=== PATIENT | male | born 1955 | race Caucasian/White ===

== ENCOUNTER 2017-11-20 22:04 | Emergency (ER) | payer OTHER ==
[2017-11-20] MEDS ORDERED: ASPIRIN 81 MG CHEWABLE CTB PO STA (22:10)
[2017-11-20] MEDS ORDERED: MORPHINE SULFATE 10 MG/ML SOL IV PRN (22:10)
[2017-11-20] MEDS ORDERED: SODIUM CHLORIDE 0.9% FLUSH 10 ML SOL IV PRN (22:10)
[2017-11-20] MEDS ORDERED: NITROGLYCERIN 0.4 MG TAB SL PRN (22:10)
[2017-11-20 22:27] VITALS: TEMP 97.9; O2SAT 96
[2017-11-20 22:28] LABS: BASOPHILS % (AUTO) 1 % (0-3); EOSINOPHILS % (AUTO) 2 % (0-9); HEMATOCRIT 41 % (39-53); HEMOGLOBIN 14.4 gm/dl (13.5-17.7); LYMPHOCYTES % (AUTO) 26.2 % (10-50); MEAN CORPUSCULAR HEMOGLOBIN 32.8 pg (27.0-32.0); MEAN CORPUSCULAR VOLUME 94 fL (80-100); MONOCYTES % (AUTO) 7.8 % (0-12); NEUTROPHILS % (AUTO) 62.8 % (37-80)
[2017-11-20 22:41] LABS: INR 0.93 (0.86-1.12)
[2017-11-20 22:46] LABS: ALBUMIN 3.4 gm/dl (3.4-5.0); ALKALINE PHOSPHATASE 83 IU/L (46-116); ALT 40 IU/L (14-63); AMYLASE 58 IU/L (25-115); AST 27 IU/L (15-37); BILIRUBIN,TOTAL 0.3 mg/dl (0.2-1.0); BLOOD UREA NITROGEN 12 mg/dl (7-18); CALCIUM 8.4 mg/dl (8.5-10.1); CARBON DIOXIDE 22.8 mEq/L (21-32); CHLORIDE 101 mMol/L (98-107); CREATINE KINASE 157 U/L (39-308); CREATININE 1.07 mg/dl (0.80-1.30); GLOM FILT RATE 70 mL/min (>60); GLUCOSE 154 mg/dl (74-106); POTASSIUM 3.4 mMol/L (3.5-5.1); SODIUM 137 mMol/L (136-145); TOTAL PROTEIN 6.8 gm/dl (6.4-8.2); TROP I < 0.017 ng/ml (0.000-0.056)
[2017-11-20] MEDS ORDERED: MORPHINE SULFATE 10 MG/ML SOL IV ONE (22:56)
[2017-11-20] MEDS ORDERED: SODIUM CHLORIDE 0.9% 1000ML 1,000 ML with POTASSIUM CHLORIDE 2 MEQ/ML 20 MEQ IV SCH (23:15)
[2017-11-20] MEDS ORDERED: MORPHINE SULFATE 10 MG/ML SOL ONE (23:18)
[2017-11-20] MEDS ORDERED: POTASSIUM CHLORIDE 2 MEQ/ML SOL IV ONE (23:29)
[2017-11-21 03:14] VITALS: BP 121/59; PULSE 80; RESP 16
== END 2017-11-21 01:12 | disposition home or self-care (01) ==
LOC: ED 22:04
DX: R07.9 Chest pain, unspecified (principal); M62.830 Muscle spasm of back; R00.0 Tachycardia, unspecified
CPT/HCPCS: 36415; 71045; 71270; 80053; 80307; 82150; 82550; 83880; 84484; 85025; 85378; 85610; 85730; 93005; 96365; 96374; 99285; 99291; J2270; J3480; Q9967; A9270-GY

== ENCOUNTER 2019-02-25 11:49 | Emergency (ER) | payer BC | END 2019-02-25 14:39 | disposition home or self-care (01) | LOC: ED 11:49 ==